=== PATIENT | male | born 1955 | race Caucasian/White ===

== ENCOUNTER 2017-07-25 21:47 | Inpatient (IN) | payer BC ==
[2017-07-25] VITALS (121 sets, daily range): BP systolic 151; BP diastolic 107; PULSE 81; TEMP 98.4; O2SAT 89–96
[~2017-07-25] VITALS: Ht 180.3 cm; Wt 125.4 kg
[2017-07-25] MEDS ORDERED: PROTONIX20 MG PO (22:45)
[2017-07-25] MEDS ORDERED: CLARITIN 1010 MG/TAB PO (22:45)
[2017-07-25] MEDS ORDERED: CARAFATE 1GM1 G PO (22:48)
[2017-07-25] MEDS ORDERED: BENADRYL25 M2 PO (22:49)
[2017-07-25] MEDS ORDERED: OMNICEF 300MG300 MG PO (22:50)
[2017-07-25] MEDS ORDERED: MULTI VITAMINS1 TAB PO (22:51)
[2017-07-25] MEDS ORDERED: TESSALON P100 MG/CAP PO (22:53)
[2017-07-25] MEDS ORDERED: ASPIRIN E.C. 8181 MG PO (22:54)
[2017-07-25] MEDS ORDERED: MELATONIN5 M1 PO (23:01)
[2017-07-25] MEDS ORDERED: KLONOPIN2 MG PO (23:03)
[2017-07-25] MEDS ORDERED: GIAZO1.1 GM PO (23:15)
[2017-07-26] VITALS (1067 sets, daily range): BP systolic 138–153; BP diastolic 81–101; PULSE 71–80; TEMP 97.2–98.7; O2SAT 84–97
[2017-07-26 06:09] LABS: HEMATOCRIT 43.2 % (42.0-52.0); HEMOGLOBIN 14.7 g/dl (13.5-18.0); MEAN CELL VOLUME 88 fl (80.0-100.0); MEAN CORPUSCULAR HEMOGLOBIN 30 pg (27.0-31.0); MEAN CORPUSCULAR HGB CONC 34 g/dl (33.0-37.0); MEAN PLATELET VOLUME 9.9 fl (7.4-10.4); PLATELET COUNT 185 K/mm3 (130-400); RED BLOOD COUNT 4.89 M/mm3 (4.20-5.60); REDCELL DISTRIBUTION WIDTH-CV 14.1 % (11.5-14.5)
[2017-07-26 06:22] LABS: INR 1.1 (0.8-3.0); PROTHROMBIN TIME 12.9 SECONDS (9.7-12.8)
[2017-07-26 06:25] LABS: CALCIUM 8.5 mg/dL (8.4-10.2); CREATININE, serum 0.8 mg/dL (0.66-1.25); PARTIAL THROMBOPLASTIN TIME 31.3 SECONDS (26.0-37.0); POTASSIUM 3.9 mmol/L (3.4-5.0)
[2017-07-26] MEDS ORDERED: MAXZIDE 50 MG-71 TAB PO (19:54)
[2017-07-27] VITALS (97 sets, daily range): BP systolic 109–145; BP diastolic 80–104; PULSE 61–79; TEMP 97.8–98.6; O2SAT 88–96
[2017-07-27 11:22] LABS: FACTOR II ACTIVITY 110 % (72-140); FACTOR V 119 % (50-150)
[2017-07-27 12:34] LABS: PROTEIN C ACTIVITY 126 % (70-150)
[2017-07-28 03:01] VITALS: BP 153/84; PULSE 64; TEMP 98.5
[2017-07-28 06:36] LABS: HEMATOCRIT 41.4 % (42.0-52.0); HEMOGLOBIN 14.1 g/dl (13.5-18.0); MEAN CELL VOLUME 88 fl (80.0-100.0); MEAN CORPUSCULAR HEMOGLOBIN 30 pg (27.0-31.0); MEAN CORPUSCULAR HGB CONC 34 g/dl (33.0-37.0); MEAN PLATELET VOLUME 10.1 fl (7.4-10.4); PLATELET COUNT 217 K/mm3 (130-400); RED BLOOD COUNT 4.69 M/mm3 (4.20-5.60)
[2017-07-28 08:15] VITALS: BP 132/75; PULSE 72; TEMP 98
[2017-07-28] MEDS ORDERED: ELIQUIS 5MG PO ×2 (09:19→09:20)
[2017-07-28 11:55] LABS: LUPUS ANTICOAGULANT INR 1.4 (())
== END 2017-07-28 14:10 | disposition home or self-care (01) | DRG 175 ==
LOC: ICU 21:47 → MEDICAL 07-27 10:17
PROVIDERS: Internal Medicine; Nurse Practitioner
DX: I26.99 Other pulmonary embolism without acute cor pulmonale (principal); I21.A1 Myocardial infarction type 2; I10 Essential (primary) hypertension; G47.33 Obstructive sleep apnea (adult) (pediatric); R73.01 Impaired fasting glucose
CPT/HCPCS: 99223-AI; 99233-AI; 99239; J1644; J3475; Q9967